=== PATIENT | female | born 1935 | race Caucasian/White ===

== ENCOUNTER 2016-09-01 10:38 | Inpatient (IN) | payer OTHER ==
[~2016-09-01] VITALS: Ht 165.1 cm; Wt 75.2 kg
[~2016-09-01 10:38] MED LIST: ACET325T14 PO; AMLO5TAB4 PO; AMOX-367 PO; CLAR500T PO; DOCU100C8 PO; DORZ10DR7 RIGHTEYE; HYDR-3144 PO; METO25TA35 PO; OMEP40CA6 PO; POTA20TA91 PO; SUCR1ORA11 PO; WARF2TAB PO
[2016-09-01] MEDS ORDERED: HYDROcodone/APAP 5/325 TABLET ONE (11:25)
[2016-09-01] MEDS ORDERED: HYDROcodone/APAP 5/325 TABLET PO ONE (11:30)
[2016-09-01] MEDS ORDERED: ASPI325T4 PO (12:21)
[2016-09-01] MEDS ORDERED: HYDR-3307 PO (12:21)
[2016-09-01] MEDS ORDERED: ONDANSETRON 2MG/ML, 2ML IVPush PRN (15:00)
[2016-09-01] MEDS ORDERED: MORPHINE SULFATE 4 MG/ML, 1ML IVPush PRN (15:00)
[2016-09-01 15:23] LABS: BLOOD UREA NITROGEN 24 mg/dL (7-18)
[2016-09-01] MEDS: SODIUM CHLORIDE 0.9% 1,000 ML IV SCH (17:31)
[2016-09-01] MEDS: morphine SULFATE 10 MG/ML, 1ML IVPush PRN (17:53)
[2016-09-01 20:07] VITALS: BP 136/46
[2016-09-02] MEDS: morphine SULFATE 10 MG/ML, 1ML IVPush PRN (00:51)
[2016-09-02 05:07] VITALS: BP 126/74
[2016-09-02 05:29] LABS: BLOOD UREA NITROGEN 17 mg/dL (7-18)
[2016-09-02 07:13] VITALS: BP 133/75
[2016-09-02] MEDS: SODIUM CHLORIDE 0.9% 1,000 ML IV SCH (10:36)
[2016-09-02] MEDS ORDERED: ENOXAPARIN 40 MG/0.4 ML SQ SCH (11:00)
[2016-09-02] MEDS ORDERED: POTASSIUM CHLORIDE 20 MEQ TAB.ER.PRT PO ONE (11:00)
[2016-09-02] MEDS: ENOXAPARIN 40 MG/0.4 ML SQ SCH (13:25)
[2016-09-02 13:36] VITALS: BP 131/68
[2016-09-02] MEDS ORDERED: RISPERIDONE 0.5 MG TABLET PO SCH (18:00)
[2016-09-02 19:28] VITALS: BP 127/73
[2016-09-02] MEDS: RISPERIDONE 0.5 MG TABLET PO SCH (20:14)
[2016-09-03 02:37] VITALS: BP 108/60
[2016-09-03 05:34] LABS: ASPARTATE AMINO TRANSFERASE 40 U/L (15-37); BLOOD UREA NITROGEN 16 mg/dL (7-18)
[2016-09-03 08:21] VITALS: BP 103/62
[2016-09-03] MEDS: RISPERIDONE 0.5 MG TABLET PO SCH ×2 (09:28→20:52)
[2016-09-03] MEDS ORDERED: ERGOCALCIFEROL 50,000 UNIT CAPSULE PO SCH (09:30)
[2016-09-03] MEDS ORDERED: ERGO500017 PO (10:10)
[2016-09-03] MEDS: ENOXAPARIN 40 MG/0.4 ML SQ SCH (11:52)
[2016-09-03 13:33] VITALS: BP 99/62
[2016-09-03 19:40] VITALS: BP 95/51
[2016-09-04 03:32] VITALS: BP 106/63
[2016-09-04 08:23] VITALS: BP 129/76
[2016-09-04] MEDS: RISPERIDONE 0.5 MG TABLET PO SCH (08:53)
[2016-09-04] MEDS ORDERED: CEFD300C37 PO (12:20)
[2016-09-04] MEDS: ENOXAPARIN 40 MG/0.4 ML SQ SCH (13:17)
[2016-09-04 14:48] VITALS: BP 104/65
[2016-09-04] MEDS ORDERED: CEFDINIR 300 MG CAPSULE PO SCH (21:00)
== END 2016-09-04 16:27 | disposition home or self-care (01) | DRG 563 ==
LOC: SUATTDRO 14:54 → ED 15:42 → 4NOR 16:00
PROVIDERS: ADMIT Internal Medicine
DX: S82.001A Unspecified fracture of right patella, initial encounter for closed fracture (principal); S72.401A Unspecified fracture of lower end of right femur, initial encounter for closed fracture; D68.59 Other primary thrombophilia; N39.0 Urinary tract infection, site not specified; D63.8 Anemia in other chronic diseases classified elsewhere; E55.9 Vitamin D deficiency, unspecified; F03.90 Unspecified dementia, unspecified severity, without behavioral disturbance, psychotic disturbance, mood disturbance, and anxiety; H40.9 Unspecified glaucoma; I48.0 Paroxysmal atrial fibrillation; K21.9 Gastro-esophageal reflux disease without esophagitis; M19.90 Unspecified osteoarthritis, unspecified site; W19.XXXA Unspecified fall, initial encounter; Y93.89 Activity, other specified; Y92.89 Other specified places as the place of occurrence of the external cause; Y99.8 Other external cause status; Z66 Do not resuscitate; Z80.0 Family history of malignant neoplasm of digestive organs; Z82.5 Family history of asthma and other chronic lower respiratory diseases; Z86.19 Personal history of other infectious and parasitic diseases; Z87.11 Personal history of peptic ulcer disease; Z96.652 Presence of left artificial knee joint; R53.81 Other malaise
CPT/HCPCS: 36415; 80048; 80053; 81001; 82040; 82306; 83735; 84443; 85025; 87077; 87086; 87186; 99285; J1650; J2270; J7030